=== PATIENT | male | born 1985 | race American Indian/Alaskan Native ===

== ENCOUNTER 2021-05-21 10:11 | Emergency (ER) | payer SELFPAY ==
--- NOTE | 2021-05-21 12:01 | Emergency Department Report ---
- General Chief Complaint: Dyspnea/Respdistress Stated Complaint: COUGH Time Seen by Provider: 05/21/21 11:05 Source: patient Mode of arrival: Ambulatory Limitations: No Limitations - History of Present Illness Initial Comments: Patient is a 35-year-old male presents emergency room complaints of a dry cough that began 2 weeks ago. He has associated rhinorrhea. He states that his symptoms improved with [id number] medications but the symptoms returned. He states he was concerned that he may have pneumonia. He denies any fever, vomiting, diarrhea, shortness of breath. He denies any known sick contacts or recent travel. He has been fully vaccinated for COVID-19. He reports that he took an at-home Covid test and states it was negative. He reports he is a non-smoker. He denies any past medical history or allergies to medications. - Related Data Previous Rx's Medication Instructions Recorded Last Taken Type Benzonatate [Tessalon Perles] 100 mg PO Q8HR PRN #12 capsule 05/21/21 Unknown Rx Fluticasone [Flonase] 1 spray NS QDAY #1 bottle 05/21/21 Unknown Rx Loratadine 10 mg PO DAILY #20 tablet 05/21/21 Unknown Rx guaiFENesin ER [Mucinex ER] 600 mg PO Q12H #14 tablet.er 05/21/21 Unknown Rx ED Review of Systems ROS: Stated complaint: COUGH Other details as noted in HPI Comment: All other systems reviewed and negative ED Past Medical Hx - Past Medical History Previous Medical History?: No - Surgical History Past Surgical History?: No - Medications Home Medications: Home Medications Medication Instructions Recorded Confirmed Last Taken Type Benzonatate [Tessalon Perles] 100 mg PO Q8HR PRN #12 capsule 05/21/21 Unknown Rx Fluticasone [Flonase] 1 spray NS QDAY #1 bottle 05/21/21 Unknown Rx Loratadine 10 mg PO DAILY #20 tablet 05/21/21 Unknown Rx guaiFENesin ER [Mucinex ER] 600 mg PO Q12H #14 tablet.er 05/21/21 Unknown Rx ED Physical Exam - General Limitations: No Limitations General appearance: alert, in no apparent distress - Head Head exam: Present: atraumatic, normocephalic - Eye Eye exam: Present: normal appearance - ENT ENT exam: Present: mucous membranes moist - Respiratory Respiratory exam: Present: normal lung sounds bilaterally. Absent: respiratory distress, wheezes, rales, rhonchi, stridor, chest wall tenderness, accessory muscle use, decreased breath sounds, prolonged expiratory - Cardiovascular Cardiovascular Exam: Present: regular rate, normal rhythm, normal heart sounds. Absent: systolic murmur, diastolic murmur, rubs, gallop - Neurological Exam Neurological exam: Present: alert, oriented X3 - Psychiatric Psychiatric exam: Present: normal affect, normal mood - Skin Skin exam: Present: warm, dry, intact ED Course Vital Signs 05/21/21 05/21/21 10:18 12:22 Temperature 98.4 F 98.3 F Pulse Rate 82 71 Respiratory 18 16 Rate Blood Pressure 140/80 126/81 [Right] O2 Sat by Pulse 98 100 Oximetry ED Medical Decision Making - Radiology Data Radiology results: report reviewed Ordering Physician: HILDA اعللي Date of Service: 05/21/21 Procedure(s): XR chest routine 2V Accession Number(s): [id number] cc: HILDA العلي Fluoro Time In Minutes: CHEST 2 VIEWS INDICATION: cough x 2 weeks. COMPARISON: none FINDINGS: Support devices: None. Heart: Within normal limits. Lungs/pleura: No acute air space or interstitial disease. No pleural a bnormality or pneumothorax. Additional findings: 2 tiny radiopaque densities are identified in the left posterior axillary soft tissues which may represent bullet fragments or shrapnel. IMPRESSION: No acute findings. Signer Name: Ziyad Corea Jr, MD Signed: 05/21/2021 11:55 AM Workstation Name: [id number] Transcribed By: TTR Dictated By: ZIYAD COREA JR, MD Electronically Authenticated By: ZIYAD COREA JR, MD Signed Date/Time: 05/21/21 1155 DD/ 1154 TD/TT: - Medical Decision Making Patient is a 35-year-old male presents emergency room complaints of a dry cough that began 2 weeks ago. He has associated rhinorrhea. He states that his symptoms improved with [id number] medications but the symptoms returned. He states he was concerned that he may have pneumonia. He denies any fever, vomiting, diarrhea, shortness of breath. He denies any known sick contacts or recent travel. He has been fully vaccinated for COVID-19. He reports that he took an at-home Covid test and states it was negative. He reports he is a non- smoker. He denies any past medical history or allergies to medications. Vitals are stable. breath sounds are clear bilaterally, no wheezing, no rales, no rhonchi. CXR: No acute findings. Discussed all findings with patient. Symptoms could be related to viral URI versus allergies. Patient given prescription for medication. No clinical signs of bacterial pneumonia or bacterial bronchitis. advised patient Please take medication as prescribed. Increase your fluid intake. May use a vaporizer. Follow-up with your primary care doctor. Return to emergency room for any new or worsening symptoms. Critical care attestation.: If time is entered above; I have spent that time in minutes in the direct care of this critically ill patient, excluding procedure time. ED Disposition Clinical Impression: Upper respiratory infection Qualifiers: URI type: unspecified URI Qualified Code(s): J06.9 - Acute upper respiratory infection, unspecified Disposition: 01 HOME / SELF CARE / HOMELESS Is pt being admited?: No Does the pt Need Aspirin: No Condition: Stable Instructions: Viral Respiratory Infection Additional Instructions: Please take medication as prescribed. Increase your fluid intake. May use a vaporizer. Follow-up with your primary care doctor. Return to emergency room for any new or worsening symptoms. Prescriptions: Fluticasone [Flonase] 1 spray NS QDAY #1 bottle Loratadine 10 mg PO DAILY #20 tablet guaiFENesin ER [Mucinex ER] 600 mg PO Q12H #14 tablet.er Benzonatate [Tessalon Perles] 100 mg PO Q8HR PRN #12 capsule PRN Reason: cough Referrals: PRIMARY CARE, [Primary Care Provider] - 2-3 Days Time of Disposition: 12:05 Print Language: MONEGASQUE
--- NOTE | 2021-05-21 12:01 | XRay Report ---
CHEST 2 VIEWS INDICATION: cough x 2 weeks. COMPARISON: none FINDINGS: Support devices: None. Heart: Within normal limits. Lungs/pleura: No acute air space or interstitial disease. No pleural abnormality or pneumothorax. Additional findings: 2 tiny radiopaque densities are identified in the left posterior axillary soft t issues which may represent bullet fragments or shrapnel. IMPRESSION: No acute findings. Signer Name: Ziyad Corea Jr, MD Signed: 05/21/2021 11:55 AM Workstation Name: [id number]
[2021-05-21 12:23] VITALS: BP 126/81
== END 2021-05-21 12:24 | disposition home or self-care (01) ==
LOC: ED 10:11
DX: J06.9 Acute upper respiratory infection, unspecified (principal)
CPT/HCPCS: 71046; 99283